=== PATIENT | female | born 1985 | race Caucasian/White ===

== ENCOUNTER → 2016-12-18 | Outpatient (CLI) | payer OTHER ==
[~2016-12-18] MED LIST: PROM25TA14 PO
--- OUTSIDE RECORDS SUMMARY | 2016-12-18 13:00 | XMS REPORT | Continuity of Care Document ---
Author Author [facility] Organization [facility] Address Unknown Phone Unavailable Care Team Providers Care Educational Advisor Name Role Phone NO, LOCAL PHYSICIAN PCP Unavailable Insurance Providers Payer Name Policy Number Subscriber Name Relationship Self Pay Jennifer Mancia 18 Self / Same As Patient Advance Directives Directive Response Recorded Date/Time Advance Directives No 10/01/16 2:46pm Resuscitation Status Full Code 10/01/16 2:46pm Chief Complaint and Reason for Visit Chief Complaint -Female Reason for Visit Vomiting affecting Dehydration Problems Active Problems Medical Problem Onset Date Status Dehydration Unknown Acute Vomiting affecting Unknown Acute Medications Current Home Medications Medication Dose Units Route Directions Days/Qty Instructions Start Date Promethazine Hcl (Phenergan Tablet) 25 Mg 25 Mg Oral Every 8HRS as needed for Nausea/Vomiting 14 10/01/16 Social History Social History Problem Response Recorded Date/Time Alcohol Use Denies Use 10/01/2016 2:54pm Recreational Drug Use No 10/01/2016 2:54pm Recent Foreign Travel No 10/01/2016 2:16pm Recent Infectious Disease Exposure No 10/01/2016 2:16pm Hospitalization with Isolation Denies 10/01/2016 2:16pm Smoking Status Current Everyday Smoker 10/01/2016 2:54pm Recent Hopitalizations No 10/01/2016 2:46pm Hospitalization with Isolation Denies 10/01/2016 2:16pm Query Response Start Date Stop Date Smoking Status Current Everyday Smoker Hospital Discharge Instructions No hospital discharge instructions. Plan of Care Discharge Date 10/01/16 5:32pm Disposition 01 HOME, SELF-CARE Condition at Discharge Improved Instructions/Education Provided Dehydration, Adult (DC) Nausea and Vomiting of (DC) Forms Provided Local Medical Staff Listing Prescriptions See Medication Section Referrals NO,LOCAL PHYSICIAN - Primary Care Physician Additional Instructions/Education All discharge instructions reviewed with patient and/or family. Voiced understanding. Drink plenty of fluids by drinking small sips frequently. Clear liquid diet for 24 hours and then advance as tolerated. You should try small snacks or meals more frequently and avoid any large snack or male. It is very important that he establish care with an OB doctor. Use local medical staff listing for guidance. Return for worse pain, fever, vomiting, weakness, breathing problems or other concerns as needed. Functional Status No functional status results. Allergies, Adverse Reactions, Alerts No known allergies. Immunizations No immunization records. Vital Signs Acute Vital Signs Vital Response Date/Time Temperature (Fahrenheit) 98 degrees F (97.6 - 99.5) 10/01/2016 2:16pm Temperature (Calculated Celsius) 36.6696 degrees C (36.4 - 37.5) 10/01/2016 2 :16pm Temperature Source Temporal 10/01/2016 2:16pm Pulse Rate (adult) 90 bpm (60 - 90) 10/01/2016 2:16pm Respiratory Rate 18 bpm (12 - 24) 10/01/2016 2:16pm Blood Pressure 134/73 mm Hg 10/01/2016 2:16pm Blood Pressure Mean 93 mm Hg 10/01/2016 2:16pm Pain Numeric Pain Scale 6 10/01/2016 2:16pm Height (Feet) 5 feet 10/01/2016 2:16pm Height (Inches) 5 inches 10/01/2016 2:16pm Height (Calculated Centimeters) 165.489360 cm 10/01/2016 2:16pm Weight (Pounds) 130 pounds 10/01/2016 2:16pm Weight (Calculated Kilograms) 58.632834 kilograms 10/01/2016 2:16pm Capillary Refill Capillary Refill Less Than 3 Seconds 10/01/2016 2:16pm Height 5 ft 5 in Weight 130 lb Body Mass Index 21.6 kg/m^2 Results Laboratory Results Test Name Result Units Flags Reference Collection Date/Time Result Date/ Time Comments White Blood Count 11.8 10^3/uL H 4.3-11.0 10/01/2016 2:24pm 10/01/2016 2: 47pm Red Blood Count 4.14 10^6/uL L 4.35-5.85 10/01/2016 2:24pm 10/01/2016 2: 47pm Hemoglobin 12.2 G/DL 11.5-16.0 10/01/2016 2:24pm 10/01/2016 2:47pm Hematocrit 35 % 35-52 10/01/2016 2:24pm 10/01/2016 2:47pm Mean Corpuscular Volume 85 FL 80-99 10/01/2016 2:24pm 10/01/2016 2: 47pm Mean Corpuscular Hemoglobin 30 PG 25-34 10/01/2016 2:24pm 10/01/2016 2: 47pm Mean Corpuscular Hemoglobin Concent 35 G/DL 32-36 10/01/2016 2:24pm 2:47pm Red Cell Distribution Width 13.7 % 10.0-14.5 10/01/2016 2:24pm 2015 2:47pm Platelet Count 205 10^3/uL 130-400 10/01/2016 2:24pm 10/01/2016 2:47pm Mean Platelet Volume 10.6 FL H 7.4-10.4 10/01/2016 2:24pm 10/01/2016 2: 47pm Neutrophils (%) (Auto) 78 % H 42-75 10/01/2016 2:24pm 10/01/2016 2:47pm Lymphocytes (%) (Auto) 14 % 12-44 10/01/2016 2:24pm 10/01/2016 2:47pm Monocytes (%) (Auto) 7 % 0-12 10/01/2016 2:24pm 10/01/2016 2:47pm Eosinophils (%) (Auto) 1 % 0-10 10/01/2016 2:24pm 10/01/2016 2:47pm Basophils (%) (Auto) 0 % 0-10 10/01/2016 2:24pm 10/01/2016 2:47pm Neutrophils # (Auto) 9.2 X 10^3 H 1.8-7.8 10/01/2016 2:24pm 10/01/2016 2: 47pm Lymphocytes # (Auto) 1.7 X 10^3 1.0-4.0 10/01/2016 2:24pm 10/01/2016 2: 47pm Monocytes # (Auto) 0.8 X 10^3 0.0-1.0 10/01/2016 2:24pm 10/01/2016 2: 47pm Eosinophils # (Auto) 0.1 10^3/uL 0.0-0.3 10/01/2016 2:24pm 10/01/2016 2 :47pm Basophils # (Auto) 0.0 10^3/uL 0.0-0.1 10/01/2016 2:24pm 10/01/2016 2: 47pm Urine Color YELLOW 10/01/2016 2:40pm 10/01/2016 2:56pm Urine Clarity SLIGHTLY CLOUDY 10/01/2016 2:40pm 10/01/2016 2:56pm Urine pH 6 5-9 10/01/2016 2:40pm 10/01/2016 2:56pm Urine Specific [place] 1.025 * 1.016-1.022 10/01/2016 2:40pm 2015 2:56pm Urine Protein NEGATIVE NEGATIVE 10/01/2016 2:40pm 10/01/2016 2:56pm Urine Glucose (UA) NEGATIVE NEGATIVE 10/01/2016 2:40pm 10/01/2016 2: 56pm Urine RBC (Auto) 1+ * NEGATIVE 10/01/2016 2:40pm 10/01/2016 2:56pm Urine Ketones 3+ * NEGATIVE 10/01/2016 2:40pm 10/01/2016 2:56pm Urine Nitrite NEGATIVE NEGATIVE 10/01/2016 2:40pm 10/01/2016 2:56pm Urine Bilirubin NEGATIVE NEGATIVE 10/01/2016 2:40pm 10/01/2016 2: 56pm Urine Urobilinogen NORMAL MG/DL NORMAL 10/01/2016 2:40pm 10/01/2016 2: 56pm Urine Leukocyte Esterase 2+ * NEGATIVE 10/01/2016 2:40pm 10/01/2016 2: 56pm Urine RBC 5-10 /HPF * 10/01/2016 2:40pm 10/01/2016 2:56pm Urine WBC 2-5 /HPF 10/01/2016 2:40pm 10/01/2016 2:56pm Urine Bacteria FEW /HPF * 10/01/2016 2:40pm 10/01/2016 2:56pm Urine Squamous Epithelial Cells TNTC /HPF * 10/01/2016 2:40pm 2015 2:56pm Urine Crystals NONE /LPF 10/01/2016 2:40pm 10/01/2016 2:56pm Urine Casts NONE /LPF 10/01/2016 2:40pm 10/01/2016 2:56pm Urine Mucus MODERATE /LPF * 10/01/2016 2:40pm 10/01/2016 2:56pm Urine Culture Indicated NO 10/01/2016 2:40pm 10/01/2016 2:56pm SPECIMEN IS NOT CONSIDERED A "CLEAN CATCH" DUE TO NUMEROUS SQUAMOUS EPITHELIAL CELLS PRESENT. PLEASE SUBMIT A NEW SPECIMEN AND REORDER IF CULTURE IS REQUESTED. Sodium Level 136 MMOL/L 135-145 10/01/2016 2:24pm 10/01/2016 3:02pm Potassium Level 3.5 MMOL/L L 3.6-5.0 10/01/2016 2:24pm 10/01/2016 3:02pm Chloride Level 105 MMOL/L 98-107 10/01/2016 2:24pm 10/01/2016 3:02pm Carbon Dioxide Level 22 MMOL/L 21-32 10/01/2016 2:24pm 10/01/2016 3: 02pm Anion Gap 9 MMOL/L 5-14 10/01/2016 2:24pm 10/01/2016 3:02pm Blood Urea Nitrogen 5 MG/DL L 7-18 10/01/2016 2:24pm 10/01/2016 3:02pm Creatinine 0.55 MG/DL L 0.60-1.30 10/01/2016 2:24pm 10/01/2016 3:02pm BUN/Creatinine Ratio 9 10/01/2016 2:24pm 10/01/2016 3:02pm Estimat Glomerular Filtration Rate > 60 10/01/2016 2:24pm 2015 3:02pm GFR INTERPRETIVE DATA UNITS FOR ESTIMATED GFR (eGFR): mL/min/1.73 M2 REFERENCE RANGE FOR ESTIMATED GFR (eGFR) eGFR NORMAL eGFR >60 MODERATELY DECREASED eGFR 30-59 SEVERLY DECREASED eGFR 15-29 KIDNEY FAILURE <15 (OR DIALYSIS) Glucose Level 81 MG/DL 70-105 10/01/2016 2:24pm 10/01/2016 3:02pm Calcium Level 9.1 MG/DL 8.5-10.1 10/01/2016 2:24pm 10/01/2016 3:02pm Total Bilirubin 0.2 MG/DL 0.1-1.0 10/01/2016 2:24pm 10/01/2016 3:02pm Alkaline Phosphatase 51 U/L 40-136 10/01/2016 2:24pm 10/01/2016 3:02pm Aspartate Amino Transf (AST/SGOT) 14 U/L 5-34 10/01/2016 2:24pm 2015 3:02pm Alanine Aminotransferase (ALT/SGPT) 15 U/L 0-55 10/01/2016 2:24pm 10/01 3:02pm Total Protein 6.7 G/DL 6.4-8.2 10/01/2016 2:24pm 10/01/2016 3:02pm Albumin 4.2 G/DL 3.2-4.5 10/01/2016 2:24pm 10/01/2016 3:02pm Procedures No known history of procedures. Encounters Encounter Location Arrival/Admit Date Discharge/Depart Date Attending Provider Departed Emergency Room [facility] 10/01/16 2:04pm 10/01 5:32pTRISH Rodriguez MD Recent Diagnosis
--- NOTE | 2016-12-18 16:35 | Diagnostic Imaging Report ---
EXAMINATION: OB ultrasound. INDICATION: survey. FINDINGS: The heart rate is 150 BPM. The cervix is long and closed. The placenta is fundal. There is no placenta previa. The spine, posterior fossa, lateral ventricles, stomach, four-chamber view, bladder, two umbilical arteries, and cord insertion are seen with no abnormality identified. No hydronephrosis or cystic renal mass is demonstrated. The growth parameters are all around 19 weeks and 6 days, concordant with the gestational age of 19 weeks and 3 days based on the prior ultrasound. IMPRESSION: Appropriate interval growth. Completed survey. Dictated by: Dictated on workstation # [id number]
== END ==
LOC: RAD 12:56
PROVIDERS: ATTEND Family Medicine
DX: Z34.92 Encounter for supervision of normal pregnancy, unspecified, second trimester (principal)
CPT/HCPCS: 76805

== ENCOUNTER → 2017-02-27 | Outpatient (CLI) | payer OTHER | LOC: LAB 09:19 | PROVIDERS: ATTEND Family Medicine | DX: O99.810 Abnormal glucose complicating pregnancy (principal) | CPT/HCPCS: 36415; 82951; 82952; 82962 ==

== ENCOUNTER 2017-03-19 14:10 | Outpatient (CLI) | payer OTHER ==
[~2017-03-19] VITALS: Ht 165.1 cm; Wt 78.2 kg
[2017-03-19 14:35] VITALS: BP 126/64
--- NOTE | 2017-03-19 16:32 | Diagnostic Imaging Report ---
INDICATION: Pain, leaking fluids, contractions. TECHNIQUE: Multiple, limited real-time grayscale images were obtained of the gravid uterus. CORRELATION STUDY: 12/18/2016. FINDINGS: Limited obstetrical sonogram imaging demonstrates cervical length at 3.3 cm. Cervix appears to be generally closed. Fetus is currently in cephalic presentation. There is normal amount of amniotic fluid with an index at 12.1 cm. Placenta is posterior and without definitive evidence for previa. cardiac activity at 144 beats per minute. IMPRESSION: 1. Limited obstetrical sonogram imaging demonstrates intrauterine , currently in cephalic presentation. 2. Currently normal amount of amniotic fluid with an index at 12 cm. 3. Cervix has an unremarkable appearance. Dictated by: Dictated on workstation # [id number]
[2017-03-19 17:10] VITALS: BP 123/68
[2017-03-19] MEDS ORDERED: PREN1TAB86 PO (18:30)
--- NOTE | 2017-03-19 20:23 | Clinic Account Progress/Dx ---
Clinic Account Progress/Dx DIAGNOSIS: Diagnosis 32 weeks gestation contractions No significant cervical dilation and no cervical change manager 4 hours Cervical length 3.3 cm GA normal Amnioswab negative BHUPENDRA COLIN MD March 19, 2017 20:23
== END 2017-03-19 18:55 | disposition home or self-care (01) ==
LOC: LDRP 14:10 → WSo 14:10
PROVIDERS: ATTEND Family Medicine
DX: O60.03 Preterm labor without delivery, third trimester (principal); Z3A.32 32 weeks gestation of pregnancy
CPT/HCPCS: 76815; 99214

== ENCOUNTER 2017-05-02 09:49 | Inpatient (IN) | payer OTHER ==
[2017-05-02] VITALS (35 sets, daily range): BP systolic 103–172; BP diastolic 50–98
[~2017-05-02] VITALS: Ht 165.1 cm; Wt 83.7 kg
[~2017-05-02 09:49] MED LIST changes: +PREN1TAB86 PO
[2017-05-02] MEDS ORDERED: BETAMETHASONE ACE/NA PHOS 6 MG/ML (CELESTONE SOLUSPAN) ONE (11:52)
[2017-05-02] MEDS ORDERED: NS (IVPB) 0 ML ONE (11:53)
[2017-05-02] MEDS ORDERED: AMPICILLIN 2000 MG INJECTION (IM/IV) ONE (11:53)
[2017-05-02] MEDS ORDERED: D5 LR IV SOLUTION 0 ML IV ONE (11:53)
[2017-05-02] MEDS ORDERED: D5 LR IV SOLUTION 1,000 ML IV SCH (12:17)
[2017-05-02 12:25] LABS: BASOPHILS % (AUTO) 0 % (0-10); EOSINOPHILS % (AUTO) 0 % (0-10); LYMPHOCYTES # (AUTO) 1.7 X 10^3 (1.0-4.0); LYMPHOCYTES % (AUTO) 7 % (12-44); MEAN CORPUSCULAR HEMOGLOBIN 26 PG (25-34); MEAN CORPUSCULAR HGB CONC 33 G/DL (32-36); MEAN CORPUSCULAR VOLUME 80 FL (80-99); MEAN PLATELET VOLUME 11.4 FL (7.4-10.4); MONOCYTES # (AUTO) 1.4 X 10^3 (0.0-1.0); MONOCYTES % (AUTO) 5 % (0-12); NEUTROPHILS # (AUTO) 23.4 X 10^3 (1.8-7.8); NEUTROPHILS % (AUTO) 88 % (42-75); PLATELET COUNT 202 10^3/uL (130-400); RED BLOOD COUNT 4.34 10^6/uL (4.35-5.85); RED CELL DISTRIBUTION WIDTH 14.3 % (10.0-14.5); WHITE BLOOD COUNT 26.6 10^3/uL (4.3-11.0)
[2017-05-02] MEDS ORDERED: MINERAL OIL CONCENTRATE 99.9% 15 ML UDC TOP PRN (12:30)
[2017-05-02 12:52] LABS: BAND NEUTROPHILS 1 %; BASOPHILS % (MANUAL) 0 %; EOSINOPHILS % (MANUAL) 0 %; LYMPHOCYTES % (MANUAL) 2 %; NEUTROPHILS % (MANUAL) 95 %
[2017-05-02] MEDS ORDERED: LACTATED RINGERS 1,000 ML IV ONE ×3 (12:56→16:21)
--- NOTE | 2017-05-02 13:22 | History & Physical-OB ---
OB - Chief Complaint & HPI Date/Time Date of Admission: Date of Admission: May 02, 2017 at 11:45 Time Seen by Provider: 13:16 Chief Complaint/History OB-Reason for Admission/Chief: Onset of Labor (Contractions started at 1 AM) Hx : 8 Hx Para: 3 Expected Date of Delivery: May 09, 2017 Gestational Age in Weeks: 39 Gestational Age in Days: 0 Allergies and Home Medications Allergies Coded Allergies: No Known Drug Allergies (Unverified , 10/01/16) Home Medications Vit W-Ca,Fe,FA(<1 mg) 1 Each Tablet, 1 EACH PO DAILY, (Reported) OB - History Hx of Present Care: Yes Ultrasounds: Normal mid trimester US Obstetrical Complications: None Medical Complications: Other (h/o HSV infection, no active lesions during ) Information Induced Hypertension: No Maternal Gestational Diabetes: No Hemorrhage: No Obstetrical History Hx : 8 Hx Para: 3 Hx # Term Pregnancies: 3 Number of Living Children: 3 Hx Total # of Abortions (Spona: 4 Hx Stillbirth: Yes (6 months) Hx Complication: No Hx Induced Hypertens: No Hx Maternal Gestational Diabet: No Hx Hemorrhage: No Delivery History Hx Vacuum Extraction Assisted: Yes (First ) Patient Past Medical History h/o HSV Abnormal Pap s/p Colpo 3x Social History/Family History HIV/AIDS: No Recent Infectious Disease Expo: No Sexually Transmitted Disease: Yes (HSV) Alcohol Use: Denies Use Recreational Drug Use: No Smoking Cessation: Former smoker Immunizations Tetanus Booster (TDap): Less than 5yrs (03/03/17) Rubella: immune RPR/VDRL: Negative GBS Status: Negative HBsAG: Negative OB - Admission Exam Physical Exam Date Seen by Provider: May 02, 2017 Time Seen by Provider: 13:16 HEENT: NCAT Heart: Rhythm Normal Lungs: Clear Abdomen: Non tender Extremities: Normal Reflexes: Normal Cervical Dilatation: 5cm Effacement: 100% Station: Ballotable Membranes: Intact Heart Rate: 140's Accelerations: Accelerations Present Decelerations: Variable Decelerations Short Term Variability: Present Contractions on Admission: < 5 Minutes Apart Date/Time Contractions Began;: 0100 Intensity: Firm Labs Laboratory Tests Test 05/02/17 12:00 Range/Units White Blood Count 26.6 H 4.3-11.0 10^3/uL Red Blood Count 4.34 L 4.35-5.85 10^6/uL Hemoglobin 11.3 L 11.5-16.0 G/DL Hematocrit 35 35-52 % Mean Corpuscular Volume 80 80-99 FL Mean Corpuscular Hemoglobin 26 25-34 PG Mean Corpuscular Hemoglobin Concent 33 32-36 G/DL Red Cell Distribution Width 14.3 10.0-14.5 % Platelet Count 202 130-400 10^3/uL Mean Platelet Volume 11.4 H 7.4-10.4 FL Neutrophils (%) (Auto) 88 H 42-75 % Lymphocytes (%) (Auto) 7 L 12-44 % Monocytes (%) (Auto) 5 0-12 % Eosinophils (%) (Auto) 0 0-10 % Basophils (%) (Auto) 0 0-10 % Neutrophils # (Auto) 23.4 H 1.8-7.8 X 10^3 Lymphocytes # (Auto) 1.7 1.0-4.0 X 10^3 Monocytes # (Auto) 1.4 H 0.0-1.0 X 10^3 Eosinophils # (Auto) 0.0 0.0-0.3 10^3/uL Basophils # (Auto) 0.0 0.0-0.1 10^3/uL Neutrophils % (Manual) 95 % Lymphocytes % (Manual) 2 % Monocytes % (Manual) 2 % Eosinophils % (Manual) 0 % Basophils % (Manual) 0 % Band Neutrophils 1 % Blood Morphology Comment NORMAL OB - Assessment/Plan/Diagnosis Assessment Assessment: active labor Plan Plan: Expectant Management Other Plan 31 yo @ 39.0 wga here in Active labor Plan - Continue expectant management - HSV on PPX Acyclovir - GBS neg Copy Copies To 1: GLORY DAO MD, HOLLY R MD May 02, 2017 13:22
[2017-05-02] MEDS ORDERED: CATHETER FLUSH 10 ML SYR IV SCH ×2 (14:00→22:00)
[2017-05-02] MEDS ORDERED: OXYTOCIN/NORMAL SALINE 500 ML IV SCH ×2 (14:30→19:32)
[2017-05-02] MEDS ORDERED: SUFENTA 0.6MCG/ML BUPIVA 0.125 100 ML ONE (15:40)
[2017-05-02] MEDS ORDERED: BUPIVACAINE 0.25% 30 ML (SENSORCAINE) VIAL ONE (15:42)
[2017-05-02] MEDS ORDERED: fentaNYL INJECTION 100 MCG/2 ML AMP ONE (15:43)
[2017-05-02] MEDS ORDERED: fentaNYL INJECTION 100 MCG/2 ML AMP INJ ONE (16:30)
[2017-05-02] MEDS ORDERED: ONDANSETRON 4 MG/2 ML (SDV) Z0FRAN IV PRN (16:30)
[2017-05-02] MEDS ORDERED: NALOXONE 0.4 MG/ML 1 ML (NARCAN) VIAL IV PRN (16:30)
[2017-05-02] MEDS ORDERED: EPIDURAL (SUFENTA 0.6MCG/ML BUPIVA 0.125%) 100 ML BAG EPI PRN (16:30)
[2017-05-02] MEDS ORDERED: WITCH HAZEL(TUCKS) 40 EA JAR TOP PRN (19:45)
[2017-05-02] MEDS ORDERED: TETANUS,DIPTH,PERTUSS P/F (BOOSTRIX) 0.5 ML VIAL IM ONE (19:45)
[2017-05-02] MEDS ORDERED: MEASLES,MUMPS,RUBELLA 1 EA INJ SQ ONE (19:45)
[2017-05-02] MEDS ORDERED: BENZOCAINE/MENTHOL (DERMOPLAST) 56 ML CAN TP PRN (19:45)
[2017-05-02] MEDS: IBUPROFEN 600 MG (MOTRIN) TAB PO SCH (19:54)
[2017-05-03] MEDS: IBUPROFEN 600 MG (MOTRIN) TAB PO SCH ×4 (01:59→20:17)
[2017-05-03 05:30] VITALS: BP 110/66
[2017-05-03 06:45] LABS: BASOPHILS % (AUTO) 0 % (0-10); EOSINOPHILS % (AUTO) 0 % (0-10); LYMPHOCYTES # (AUTO) 2.6 X 10^3 (1.0-4.0); LYMPHOCYTES % (AUTO) 10 % (12-44); MEAN CORPUSCULAR HEMOGLOBIN 26 PG (25-34); MEAN CORPUSCULAR HGB CONC 32 G/DL (32-36); MEAN CORPUSCULAR VOLUME 81 FL (80-99); MEAN PLATELET VOLUME 10.7 FL (7.4-10.4); MONOCYTES # (AUTO) 1.5 X 10^3 (0.0-1.0); MONOCYTES % (AUTO) 6 % (0-12); NEUTROPHILS # (AUTO) 22.2 X 10^3 (1.8-7.8); NEUTROPHILS % (AUTO) 85 % (42-75); PLATELET COUNT 191 10^3/uL (130-400); RED BLOOD COUNT 3.67 10^6/uL (4.35-5.85); RED CELL DISTRIBUTION WIDTH 14.5 % (10.0-14.5); WHITE BLOOD COUNT 26.3 10^3/uL (4.3-11.0)
[2017-05-03] MEDS: PRENATAL VITAMIN 1 EA TAB PO SCH (08:26)
[2017-05-03 08:27] VITALS: BP 113/61
--- NOTE | 2017-05-03 10:51 | OB Labor & Delivery Record ---
L&D History Date of Service Date of Service: May 02, 2017 History Expected Date of Delivery: May 09, 2017 Gestational Age in Weeks: 39 Hx : 8 Hx Para: 3 Complications Events: Routine care Operative Indications (Cesarea: N/A-Vaginal Delivery Other Complications Variable decelerations L&D Stage1 Monitors and Tracing Monitor Mode: External Heart Rate: 150 Monitor Decelerations: None Station: -2 Vital Signs VS - Last 72 Hours, by Label 05/02/17 05/02/17 05/02/17 05/02/17 10:03 11:25 12:00 12:30 Temp 97.6 97.2 Pulse 118 97 93 120 Resp 20 20 20 20 B/P (MAP) 128/68 124/76 123/69 119/82 O2 Delivery Room Air Room Air Room Air Room Air 05/02/17 05/02/17 05/02/17 05/02/17 13:45 14:05 15:00 15:30 Temp 97.8 Pulse 129 111 113 99 Resp 20 20 20 20 B/P (MAP) 118/70 124/63 141/74 129/77 O2 Delivery Room Air Room Air Room Air Room Air 05/02/17 05/02/17 05/02/17 05/02/17 15:55 16:00 16:05 16:10 Pulse 111 110 116 117 Resp 20 20 20 20 B/P (MAP) 119/58 139/65 126/75 133/61 Pulse Ox 100 100 100 97 O2 Delivery Room Air Room Air Room Air Room Air 05/02/17 05/02/17 05/02/17 05/02/17 16:15 16:20 16:25 16:30 Pulse 109 110 102 107 Resp 20 20 20 18 B/P (MAP) 124/62 125/64 114/58 121/63 Pulse Ox 97 98 96 100 O2 Delivery Room Air Room Air Room Air Room Air 05/02/17 05/02/17 05/02/17 05/02/17 16:35 16:40 16:45 17:00 Pulse 93 107 101 99 Resp 18 18 18 18 B/P (MAP) 121/63 128/71 121/62 116/63 Pulse Ox 98 97 96 98 O2 Delivery Room Air Room Air Room Air Room Air 05/02/17 05/02/17 05/02/17 05/02/17 17:15 17:35 17:50 18:05 Temp 99.0 Pulse 101 94 115 85 Resp 16 16 16 16 B/P (MAP) 128/75 103/50 140/98 107/54 Pulse Ox 97 100 100 100 O2 Delivery Room Air Room Air Room Air Room Air 05/02/17 05/02/17 05/02/17 05/02/17 18:35 18:50 19:05 19:22 Temp 99.1 Pulse 115 109 123 134 Resp 16 16 16 18 B/P (MAP) 136/66 132/57 147/91 151/75 Pulse Ox 100 100 100 O2 Delivery Room Air Room Air Room Air 05/02/17 05/02/17 05/02/17 05/02/17 19:33 19:48 19:57 20:03 Pulse 122 118 115 114 Resp 18 18 18 18 B/P (MAP) 172/65 145/69 133/60 129/61 05/02/17 05/02/17 05/02/17 05/03/17 20:18 20:33 23:30 05:30 Temp 97.0 98.0 97.8 Pulse 117 113 107 81 Resp 18 18 18 18 B/P (MAP) 128/60 142/65 114/67 110/66 Rupture of Membranes Spontaneous Ruture of Membrane: No Amniotic Membrane Rupture Time: 1640 Amniotic Membrane Fluid Desc.: Clear Induction/Anesthesia Epidural Cath Placement - Time: 1559 L&D Stage2 Monitors and Tracing Monitor Mode: External Heart Rate: 150 Monitor Decelerations: None Cord Descript/Complications Cord Vessel Description: 3 Vessels Delivery Type Infant Delivery Method: Spontaneous Vaginal Anterior Shoulder: Right Episiotomy/Perineal Laceration Laceraction(s)/Extensions: No Condition of Infant Delivery Delivery Date & Time: 05/02/2017 1905 1 minute Comment: 8 5 minute Comment: 9 Notes Infant born with true knot of umbilical cord Condition of Infant Condition of : Living Exam: No Observed Abnormalities Resuscitation Resuscitation: N/A - Spontaneous Resp L&D Stage3 Stage Three Stage III Time: 19:09 Pictocin Pitocin Administration mu/min: 4 Pitocin ml/hr: 4 Placenta Delivery Placenta Delivery: Spontaneous Delivery Summary Summary Vaginal blood loss >500ml: No 200 Attending at delivery: Glory Grider MD Condition of Delivery Examined: Cervix Examined Post Hemorrhage: No Condition of Mother Stable in delivery room Condition of (s) Stable in delivery room with mother GLORY GRIDER MD May 03, 2017 10:51
--- NOTE | 2017-05-03 10:55 | Progress Note (SOAP) ---
Subjective Subjective/Events-last exam No concerns today. States that overnight she was concerned that he was not getting enough to eat and starting giving formula. Pain well controlled on PO medications. Tolerating ambulation and PO diet Review of Systems Time Seen by Provider: 10:52 HEENT: No Head Aches Pulmonary: No Dyspnea, Cough Cardiovascular: No: Chest Pain Gastrointestinal: No: Abdominal Pain, Nausea, Vomiting Genitourinary: No Dysuria Objective Exam Last Set of Vital Signs Vital Signs Date Time Temp Pulse Resp B/P (MAP) Pulse Ox O2 Delivery O2 Flow Rate FiO2 05/03/17 05:30 97.8 81 18 110/66 05/02/17 19:05 100 Room Air Capillary Refill : I&O Bad tableGeneral: Alert, Oriented X3, No Acute Distress Lungs: Clear to Auscultation, Normal Air Movement Heart: Regular Rate, No Murmurs Abdomen: Normal Bowel Sounds, Soft, No Tenderness (fundus at umbilicus) Extremities: No Edema, No Tenderness/Swelling Psych/Mental Status: Mental Status NL, Mood NL Results/Procedures Lab Laboratory Tests 05/02/17 12:00: White Blood Count 26.6H, Red Blood Count 4.34L, Hemoglobin 11.3L, Hematocrit 35 , Mean Corpuscular Volume 80, Mean Corpuscular Hemoglobin 26, Mean Corpuscular Hemoglobin Concent 33, Red Cell Distribution Width 14.3, Platelet Count 202, Mean Platelet Volume 11.4H, Neutrophils (%) (Auto) 88H, Lymphocytes (%) (Auto) 7L, Monocytes (%) (Auto) 5, Eosinophils (%) (Auto) 0, Basophils (%) (Auto) 0, Neutrophils # (Auto) 23.4H, Lymphocytes # (Auto) 1.7, Monocytes # (Auto) 1.4H, Eosinophils # (Auto) 0.0, Basophils # (Auto) 0.0, Neutrophils % (Manual) 95, Lymphocytes % (Manual) 2, Monocytes % (Manual) 2, Eosinophils % (Manual) 0, Basophils % (Manual) 0, Band Neutrophils 1, Blood Morphology Comment NORMAL 05/03/17 06:30: White Blood Count 26.3H, Red Blood Count 3.67L, Hemoglobin 9.5L, Hematocrit 30L , Mean Corpuscular Volume 81, Mean Corpuscular Hemoglobin 26, Mean Corpuscular Hemoglobin Concent 32, Red Cell Distribution Width 14.5, Platelet Count 191, Mean Platelet Volume 10.7H, Neutrophils (%) (Auto) 85H, Lymphocytes (%) (Auto) 10L, Monocytes (%) (Auto) 6, Eosinophils (%) (Auto) 0, Basophils (%) (Auto) 0, Neutrophils # (Auto) 22.2H, Lymphocytes # (Auto) 2.6, Monocytes # (Auto) 1.5H, Eosinophils # (Auto) 0.0, Basophils # (Auto) 0.0 Assessment/Plan Assessment/Plan Plan 31 yo G8 now P4 delivery term male infant via @ 39.0 wga, PPD #1 Plan - Routine Post care - Bleeding stable, Hgb 9.5, continue PNV with iron - Encouraged ambulation - Bottle feeding infant - Pain well controlled on PO meds - Plan to d/c tomorrow with [address] follow up with Dr Grider Diagnosis/Problems: Clinical Quality Measures DVT/VTE Risk/Contraindication: Risk Factor Score Per Nursin RFS Level Per Nursing on Admit: 2=Moderate GLORY GRIDER MD May 03, 2017 10:55
[2017-05-03 12:45] VITALS: BP 125/68
--- NOTE | 2017-05-03 13:25 | Anesthesia-Regional Post-Op ---
Regional Patient Condition Mental Status: Alert, Oriented x3 Circulation: Same as Pre-Op Headache: Absent Sensation: Full Recovery Motor Block: Absent Post Op Complications Complications None Follow Up Care/Instructions Patient Instructions None needed. Anesthesia/Patient Condition Patient is doing well, no complaints, stable vital signs, no apparent adverse anesthesia problems. No complications reported per nursing. ZENIADA MANZANO CRNA May 03, 2017 13:25
[2017-05-03 17:35] VITALS: BP 110/67
[2017-05-03 20:17] VITALS: BP 117/69
[2017-05-04 02:50] VITALS: BP 102/64
[2017-05-04] MEDS: IBUPROFEN 600 MG (MOTRIN) TAB PO SCH ×2 (02:52→08:31)
[2017-05-04] MEDS: PRENATAL VITAMIN 1 EA TAB PO SCH (08:31)
[2017-05-04 09:45] VITALS: BP 110/68
[2017-05-04] MEDS ORDERED: IBUP-1773 PO (10:36)
--- NOTE | 2017-05-04 10:37 | Discharge Instructions ---
Discharge Inst-Women's Serv Depart Medications New, Converted or Re-Newed RX: Transmitted to Pharmacy Final Diagnosis Term Delivery of Male New Medications: Ibuprofen (Ibuprofen) 600 Mg Tablet 600 MG PO Q6H, #90 TAB Continued Medications: Vit W-Ca,Fe,FA(<1 mg) ( Vitamins) 1 Each Tablet 1 EACH PO DAILY, TAB Follow Up/Instructions Goal/Follow Up: [address] Grider for post visit Activity Activity: Activity as Tolerated Driving Instructions: You May Drive NO SMOKING: NO SMOKING Nothing Inside Vagina: No Douching, No [place], No Tampons Diet Discharge Diet: No Restrictions Symptoms to Report to : Bleeding Excessive, Fever Over 101 Degrees F, Lightheadedness, Vaginal Discharge Foul, Shortness of Breath For Any Problems or Questions: Contact Your Physician Skin/Wound Care Bathing Instructions: Shower Copies To 1: GLORY GRIDER MD, HOLLY R MD May 04, 2017 10:37
--- NOTE | 2017-05-04 10:41 | Discharge Summary ---
Diagnosis/Chief Complaint Date of Admission May 02, 2017 at 11:45 Date of Discharge May 04 2017 Admission Diagnosis Admission Diagnosis Active Labor Contractions at term Discharge Diagnosis Term delivery of male infant Anemia associated with Chief Complaint/HPI Chief Complaint/HPI 31 yo @ 39 wga presented to L&D with Contractions, found to be in active labor Discharge Summary-Simple/Stand Procedures Epidural placement AROM Discharge Physical Examination Allergies: Coded Allergies: No Known Drug Allergies (Unverified , 10/01/16) Vitals & I&Os Vital Sign - Last 12Hours Date Time Temp Pulse Resp B/P (MAP) Pulse Ox O2 Delivery O2 Flow Rate FiO2 05/04/17 09:45 97.4 71 20 110/68 98 Room Air General Appearance: Alert, Oriented X3, Cooperative, No Acute Distress HEENT: Atraumatic, PERRLA Respiratory: Clear to Auscultation, Normal Air Movement Cardiovascular: Regular Rate, No Murmurs Abdominal: Normal Bowel Sounds, Soft, No Tenderness (fundus firm below umbilicus) Extremities: No Edema, No Tenderness/Swelling Skin: No Rashes Neuro: Normal Speech, Strength at 5/5 X4 Ext, Sensation Intact, Cranial Nerves 3-12 NL Psych/Mental Status: Mental Status NL, Mood NL Hospital Course See final discharge diagnosis. Discussion & Recommendations 31 yo G8 now P4 delivered male infant via . Infant born with true knot. Rub Imm, O+, Ab neg. Discharge Condition at discharge Stable Instructions to patient/family Please see electonic discharge instructions given to patient. Discharge Medications Reviewed and agree with Discharge Medication list on patient's Discharge Instruction sheet Clinical Quality Measures DVT/VTE Risk/Contraindication: Risk Factor Score Per Nursin RFS Level Per Nursing on Admit: 2=Moderate Copy Copies To 1: GLORY DAO MD, HOLLY R MD May 04, 2017 10:41
== END 2017-05-04 11:20 | disposition home or self-care (01) | DRG 774 ==
LOC: LDRP 09:49 → WSo 09:49 → LDRP 11:45
PROVIDERS: ADMIT Family Medicine; ATTEND Family Medicine
PROC: 10E0XZZ Delivery of Products of Conception, External Approach (ICD-10-PCS; principal; 2017-05-02)
DX: O69.2XX0 Labor and delivery complicated by other cord entanglement, with compression, not applicable or unspecified (principal); O98.52 Other viral diseases complicating childbirth; Z37.0 Single live birth; Z3A.39 39 weeks gestation of pregnancy
CPT/HCPCS: 36415; 85007; 85025; 85027; 86850; 86900; 86901; 99212

== ENCOUNTER 2018-03-28 01:37 | Emergency (ER) | payer SELFPAY ==
[~2018-03-28] VITALS: Ht 165.1 cm; Wt 54.4 kg
[~2018-03-28 01:37] MED LIST changes: +IBUP-1773 PO
--- OUTSIDE RECORDS SUMMARY | 2018-03-28 01:44 | XMS REPORT ---
Author Author GLORY DAO [facility] Address [address] [place] [address] Care Team Providers Care Saute Chef Name Role Phone GLORY DAO Unavailable PROBLEMS Type Condition ICD9-CM Code [id number] Code Onset Dates Condition Status SNOMED Code Problem IUD (intrauterine device) in place Z97.5 Active 947126046 Problem HSV (herpes simplex virus) infection B00.9 Active 09877212 ALLERGIES No Information SOCIAL HISTORY Never Assessed PLAN OF CARE VITAL SIGNS MEDICATIONS Medication Instructions Dosage Frequency Start Date End Date Duration Status Acyclovir 200 MG Orally Three times a day 2 capsule 8h March, Active RESULTS No Results PROCEDURES No Known procedures IMMUNIZATIONS No Known Immunizations MEDICAL (GENERAL) HISTORY Type Description Date Hospitalization History Childbirth
--- OUTSIDE RECORDS SUMMARY | 2018-03-28 01:44 | XMS REPORT ---
Author Author GLORY DAO [facility] Address [address] [place] [address] Care Team Providers Care Airport Control Operator Name Role Phone GLORY DAO Unavailable PROBLEMS Type Condition ICD9-CM Code [id number] Code Onset Dates Condition Status SNOMED Code Problem IUD (intrauterine device) in place Z97.5 Active 631208600 Problem HSV (herpes simplex virus) infection B00.9 Active 66272713 ALLERGIES No Information ENCOUNTERS Encounter Location Date Diagnosis [address] [address] Jun, Encounter for IUD insertion Z30.430 and IUD (intrauterine device) in place Z97.5 [place] [address] [id number] [place] [address] Jun, Encounter for visit Z39.2 [place] [address] [address] 27 Apr, 2017 Third trimester Z33.1 and 38 weeks gestation of Z3A.38 [place] [id number] [place] [address]44- 0232 Apr, [place] [address] [address] Apr, care in third trimester Z34.93 and 37 weeks gestation of Z3A.37 [place] [address] [address] Apr, [place] [address] [id number] [place] [address] 51856- 4745 Apr, 36 weeks gestation of Z3A.36 and Third trimester Z33.1 [place] [address], [place] [address] Apr, Third trimester Z33.1 ; 35 weeks gestation of Z3A.35 and HSV (herpes simplex virus) infection B00.9 [place] [id number] [place] [address] 64602- 1148 Apr, care in third trimester Z34.93 [place] [address] [id number] [place] [address] 03173- 0302 Apr, Other viral diseases complicating , third trimester O98.513 [place] [id number] [place] [address] 87055- 4887 March, [place] [address] [id number] [place] [address] 38271- 8527 March, care in third trimester Z34.93 and 34 weeks gestation of Z3A.34 [place] [address] [id number] [place] [address] 73059- [address] March, Third trimester Z33.1 [place] [address] [id number] [place] [address] 9[address]37- 5109 March, [place] [address] [id number] [place] [address] 28693- 3066 March, Dental examination Z01.20 [place] [address] [place] [address] 44727- 5406 March, care in third trimester Z34.93 and 32 weeks gestation of Z3A.32 [place] [address] [place] [address] 07972- 7159 March, Dental examination Z01.20 [place] [address] [place] [id number] [place] [address] 89276- 7837 March, care in third trimester Z34.93 ; Encounter for immunization Z23 and 30 weeks gestation of Z3A.30 [place] [id number] [place] [address] 74740- 2[address] Feb, [place] [address], [place] [address] Feb, Abnormal glucose in , antepartum O99.810 [place] [id number] [address] Feb, 28 weeks gestation of Z3A.28 [place] [address] [place] [address] 96743- 3565 Feb, care in third trimester Z34.93 ; 28 weeks gestation of Z3A.28 and Other viral diseases complicating , third trimester O98.513 [place] [address] [id number] [place] [address] 14524- 6294 Jan, [place] [address] [address] [id number] [place] [address] 55746- 3492 Jan, Second trimester Z34.92 and 24 weeks gestation of Z3A.24 [place] [address], [place] [address] Dec, Second trimester Z33.1 and 20 weeks gestation of Z3A.20 [place] [address], [place] [address] Nov, [place] [address], [place] [address] Nov, Second trimester Z33.1 and 16 weeks gestation of Z3A.16 [place] [address], [place] [address] Nov, First trimester Z33.1 and 14 weeks gestation of Z3A.14 [place] [address], [place] [address] Oct, First trimester Z33.1 ; Normal in multigravida Z34.80 and 12 weeks gestation of Z3A.12 [place] [address] [place] [address] [id number] [address] Oct, IMMUNIZATIONS No Known Immunizations SOCIAL HISTORY Never Assessed REASON FOR VISIT PLAN OF CARE VITAL SIGNS MEDICATIONS No Known Medications RESULTS No Results PROCEDURES No Known procedures INSTRUCTIONS MEDICATIONS ADMINISTERED No Known Medications MEDICAL (GENERAL) HISTORY Type Description Date Hospitalization History Childbirth
--- OUTSIDE RECORDS SUMMARY | 2018-03-28 01:44 | XMS REPORT ---
Author Author GLORY DAO Organization [facility] Address [address] [place] [address] Care Team Providers Care Construction Engineering Manager Name Role Phone GLORY DAO Unavailable PROBLEMS Type Condition ICD9-CM Code TUF86-CR Code Onset Dates Condition Status SNOMED Code Problem IUD (intrauterine device) in place Z97.5 Active 352022933 Problem HSV (herpes simplex virus) infection B00.9 Active 80416689 ALLERGIES No Known Allergies SOCIAL HISTORY Never Assessed PLAN OF CARE Activity Details Follow Up 1 Week Reason: VITAL SIGNS Height 65 in 2017-04-01 Weight 177.0 lbs 2017-04-01 Temperature 97.6 degrees Fahrenheit 2017-04-01 Heart Rate 86 bpm 2017-04-01 Respiratory Rate 18 2017-04-01 BMI 29.454 kg/m2 2017-04-01 Blood pressure systolic 124 mmHg 2017-04-01 Blood pressure diastolic 76 mmHg 2017-04-01 MEDICATIONS Medication Instructions Dosage Frequency Start Date End Date Duration Status - Orally Once a day 1 tablet 24h Active Acyclovir 400 mg Orally Three times a day 1 tablet 8h March, 30 days Active RESULTS Name Result Date Reference Range UA OB DIP (IN HOUSE) 2017-04-01 Glucose negative Protein trace PROCEDURES Procedure Date Ordered Result Body Site URINE-NO MICRO April 01, 2017 IMMUNIZATIONS No Known Immunizations MEDICAL (GENERAL) HISTORY Type Description Date Hospitalization History Childbirth
--- OUTSIDE RECORDS SUMMARY | 2018-03-28 01:44 | XMS REPORT ---
Author Author GLORY DAO Organization [facility] Address [address] [place] [address] Care Team Providers Care Candy Dipper Name Role Phone GLORY DAO Unavailable PROBLEMS Type Condition ICD9-CM Code [id number] Code Onset Dates Condition Status SNOMED Code Problem IUD (intrauterine device) in place Z97.5 Active 060187567 Problem HSV (herpes simplex virus) infection B00.9 Active 94994199 ALLERGIES No Known Allergies SOCIAL HISTORY Never Assessed PLAN OF CARE Activity Details Follow Up 1 Week Reason: VITAL SIGNS Height 65 in 2017-04-08 Weight 179.3 lbs 2017-04-08 Temperature 99.3 degrees Fahrenheit 2017-04-08 Heart Rate 88 bpm 2017-04-08 Respiratory Rate 16 2017-04-08 BMI 29.837 kg/m2 2017-04-08 Blood pressure systolic 112 mmHg 2017-04-08 Blood pressure diastolic 58 mmHg 2017-04-08 MEDICATIONS Medication Instructions Dosage Frequency Start Date End Date Duration Status - Orally Once a day 1 tablet 24h Active Acyclovir 200 MG Orally Three times a day 2 capsule 8h March, Active RESULTS Name Result Date Reference Range UA OB DIP (IN HOUSE) 2017-04-08 Glucose Negative Protein Trace PROCEDURES Procedure Date Ordered Result Body Site URINE-NO MICRO April 08, 2017 IMMUNIZATIONS No Known Immunizations MEDICAL (GENERAL) HISTORY Type Description Date Hospitalization History Childbirth
--- OUTSIDE RECORDS SUMMARY | 2018-03-28 01:45 | XMS REPORT ---
Author Author GLORY DAO Organization [facility] Address [address] [place] [address] Care Team Providers Care Api Architect Name Role Phone GLORY DAO Unavailable PROBLEMS Type Condition ICD9-CM Code SEF70-XQ Code Onset Dates Condition Status SNOMED Code Problem IUD (intrauterine device) in place Z97.5 Active 543889647 Problem HSV (herpes simplex virus) infection B00.9 Active 80980873 ALLERGIES No Information SOCIAL HISTORY Never Assessed PLAN OF CARE VITAL SIGNS MEDICATIONS No Known Medications RESULTS Name Result Date Reference Range UA LONG DIP (IN HOUSE) 2017-03-19 Lot # [id number] Exp date 12/2017 Clarity very clear Color clear Odor no GLU neg MILADY neg KET neg SG 1.010 BLO trace-intact pH 6.5 Protein neg URO 0.2 NIT neg ROLANDA 3+ Lot # Exp date CULTURE, URINE 2017-03-19 Urine Culture, Routine Final report Result 1 No growth PROCEDURES Procedure Date Ordered Result Body Site NON-STRESS TEST 2017-03-19 N/A URINALYSIS, AUTO, W/O SCOPE March 19, 2017 NON-STRESS TEST March 19, 2017 URINE CULTURE/COLONY COUNT March 19, 2017 IMMUNIZATIONS No Known Immunizations MEDICAL (GENERAL) HISTORY Type Description Date Hospitalization History Childbirth
--- OUTSIDE RECORDS SUMMARY | 2018-03-28 01:45 | XMS REPORT ---
Author Author ASHKAN RICH Organization [facility] [place] [facility] Address [address] [place] [address] Care Team Providers Care Maintenance Mechanic Technician Name Role Phone ASHKAN RICH Unavailable PROBLEMS Type Condition ICD9-CM Code AVM59-WE Code Onset Dates Condition Status SNOMED Code Problem IUD (intrauterine device) in place Z97.5 Active 195801979 Problem HSV (herpes simplex virus) infection B00.9 Active 62303488 ALLERGIES No Known Allergies SOCIAL HISTORY Never Assessed PLAN OF CARE Activity Details Follow Up prn Reason:ARLYN VITAL SIGNS Height 65 in 2017-03-17 Heart Rate 84 bpm 2017-03-17 Blood pressure systolic 118 mmHg 2017-03-17 Blood pressure diastolic 70 mmHg 2017-03-17 MEDICATIONS Medication Instructions Dosage Frequency Start Date End Date Duration Status - Orally Once a day 1 tablet 24h Active RESULTS No Results PROCEDURES Procedure Date Ordered Result Body Site BITEWINGS - FOUR FILMS March 17, 2017 ORAL HYGIENE INSTRUCTIONS March 17, 2017 Full mouth debridement March 17, 2017 IMMUNIZATIONS No Known Immunizations MEDICAL (GENERAL) HISTORY Type Description Date Hospitalization History Childbirth
--- OUTSIDE RECORDS SUMMARY | 2018-03-28 01:45 | XMS REPORT ---
Author Author GLROY DAO [facility] Address [address] [place] [address] Care Team Providers Care Ski Binding Fitter And Repairer Name Role Phone GLORY DAO Unavailable PROBLEMS Type Condition ICD9-CM Code PRU45-IF Code Onset Dates Condition Status SNOMED Code Problem IUD (intrauterine device) in place Z97.5 Active 718136549 Problem HSV (herpes simplex virus) infection B00.9 Active 10816615 ALLERGIES No Information SOCIAL HISTORY Never Assessed PLAN OF CARE VITAL SIGNS MEDICATIONS No Known Medications RESULTS No Results PROCEDURES No Known procedures IMMUNIZATIONS No Known Immunizations MEDICAL (GENERAL) HISTORY Type Description Date Hospitalization History Childbirth
--- OUTSIDE RECORDS SUMMARY | 2018-03-28 01:45 | XMS REPORT ---
Author Author GLORY DAO [facility] Address [address] [place] [address] Care Team Providers Care Community Organization Director Name Role Phone GLORY DAO Unavailable PROBLEMS Type Condition ICD9-CM Code HMB38-CO Code Onset Dates Condition Status SNOMED Code Problem IUD (intrauterine device) in place Z97.5 Active 807208514 Problem HSV (herpes simplex virus) infection B00.9 Active 62976176 ALLERGIES No Information ENCOUNTERS Encounter Location Date Diagnosis [place] [address] [place] [id number] [place] [address] Jan, Exposure to STD Z20.2 and Bacterial conjunctivitis H10.9 [place] [address] [place] [id number] [place] [address] 16593- 4182 Jun, Encounter for IUD insertion Z30.430 and IUD (intrauterine device) in place Z97.5 [place] [address] [address] Jun, Encounter for visit Z39.2 [place] [address] [address] [id number] [place] [address] 81682- 9518 Apr, Third trimester Z33.1 and 38 weeks gestation of Z3A.38 [place] [address] [id number] [place] [address] 76618- 5[address] Apr, [place] [address] [address]- [address] Apr, care in third trimester Z34.93 and 37 weeks gestation of Z3A.37 [place] [address] [id number] [place] [address] 21132- 3876 Apr, [place] [address] [address] [id number] [place] [address] 28855- 2569 Apr, 36 weeks gestation of Z3A.36 and Third trimester Z33.1 [facility] [address] [id number] [place] [address] 90112- 5660 Apr, Third trimester Z33.1 ; 35 weeks gestation of Z3A.35 and HSV (herpes simplex virus) infection B00.9 [place] [address] [id number] [place] [address] 02369- 7445 Apr, care in third trimester Z34.93 [place] [address] [address] [id number] [place] [address] 45022- 3042 Apr, Other viral diseases complicating , third trimester O98.513 [place] [address] [address] [id number] [place] [address] 04724- 8760 March, [place] [address] [address] [id number] [place] [address] 36853- 5263 March, care in third trimester Z34.93 and 34 weeks gestation of Z3A.34 [place] [address] [address] [id number] [place] [address] 61146- 3147 March, Third trimester Z33.1 [facility] [address] [id number] [place] [address] 32202- 0614 March, [place] [address] [id number] [place] [address] 82623- 3286 March, Dental examination Z01.20 [place] [address] [id number] [place] [address] 73338- 4818 March, care in third trimester Z34.93 and 32 weeks gestation of Z3A.32 [facility] [address] [id number] [place] [address]- 1947 March, Dental examination Z01.20 [place] [address] [id number] [place] [address] 27980- 0433 March, care in third trimester Z34.93 ; Encounter for immunization Z23 and 30 weeks gestation of Z3A.30 [place] [address] [id number] [place] [address] 68722- 7743 Feb, [place] [address] [id number] [place] [address] 01599- 0878 Feb, Abnormal glucose in , antepartum O99.810 [place] [id number] [place] [address] 18958- 7367 Feb, 28 weeks gestation of Z3A.28 [place] [id number] [place] [address] 03241- 1425 Feb, care in third trimester Z34.93 ; 28 weeks gestation of Z3A.28 and Other viral diseases complicating , third trimester O98.513 [place] [id number] [place] [address] 19008- 8020 Jan, [place] [id number] [place] [address] 47575- 1998 Jan, Second trimester Z34.92 and 24 weeks gestation of Z3A.24 [place] [id number] [place] [address] 06583- 6576 Dec, Second trimester Z33.1 and 20 weeks gestation of Z3A.20 [place] [id number] [place] [address] 67278- 3991 Nov, [place] [id number] [place] [address] 36848- 0068 Nov, Second trimester Z33.1 and 16 weeks gestation of Z3A.16 [place] [id number] [place] [address] 93721- 7370 Nov, First trimester Z33.1 and 14 weeks gestation of Z3A.14 [place] [id number] [place] [address] 49421- 6436 Oct, First trimester Z33.1 ; Normal in multigravida Z34.80 and 12 weeks gestation of Z3A.12 [facility] [address] [facility] [id number] [place] [address] Oct, IMMUNIZATIONS No Known Immunizations SOCIAL HISTORY Never Assessed REASON FOR VISIT OB 4wk f/u -- chriss de la cruz PLAN OF CARE Activity Details Follow Up 4 Weeks Reason: VITAL SIGNS Height 65 in 2017-01-23 Weight 153.2 lbs 2017-01-23 Temperature 97.2 degrees Fahrenheit 2017-01-23 Heart Rate 80 bpm 2017-01-23 Respiratory Rate 20 2017-01-23 BMI 25.494 kg/m2 2017-01-23 Blood pressure systolic 130 mmHg 2017-01-23 Blood pressure diastolic 82 mmHg 2017-01-23 MEDICATIONS Medication Instructions Dosage Frequency Start Date End Date Duration Status - Orally Once a day 1 tablet 24h Active RESULTS No Results PROCEDURES No Known procedures INSTRUCTIONS MEDICATIONS ADMINISTERED No Known Medications MEDICAL (GENERAL) HISTORY Type Description Date Hospitalization History Childbirth
--- OUTSIDE RECORDS SUMMARY | 2018-03-28 01:45 | XMS REPORT ---
Author Author GLORY DAO Organization [facility] Address [address] [place] [address] Care Team Providers Care Ecg Technician Name Role Phone GLORY DAO Unavailable PROBLEMS Type Condition ICD9-CM Code [id number] Code Onset Dates Condition Status SNOMED Code Problem IUD (intrauterine device) in place Z97.5 Active 102098705 Problem HSV (herpes simplex virus) infection B00.9 Active 49518902 ALLERGIES No Information SOCIAL HISTORY Never Assessed PLAN OF CARE Activity Details Follow Up 4 weeks with Cheo Reason: VITAL SIGNS Height 65 in 2016-11-25 Weight 144.7 lbs 2016-11-25 Temperature 97.9 degrees Fahrenheit 2016-11-25 Heart Rate 90 bpm 2016-11-25 Respiratory Rate 20 2016-11-25 BMI 24.079 kg/m2 2016-11-25 Blood pressure systolic 118 mmHg 2016-11-25 Blood pressure diastolic 69 mmHg 2016-11-25 MEDICATIONS Medication Instructions Dosage Frequency Start Date End Date Duration Status - Orally Once a day 1 tablet 24h Active RESULTS Name Result Date Reference Range UA OB DIP (IN HOUSE) 2016-11-25 Glucose Negative Protein negative PROCEDURES Procedure Date Ordered Result Body Site URINE-NO MICRO Nov 25, 2016 IMMUNIZATIONS No Known Immunizations MEDICAL (GENERAL) HISTORY Type Description Date Hospitalization History Childbirth
--- OUTSIDE RECORDS SUMMARY | 2018-03-28 01:45 | XMS REPORT ---
Author Author GLORY DAO [facility] Address [address] [place] [address] Care Team Providers Care Home Health Care Case Manager Name Role Phone GLORY DAO Unavailable PROBLEMS Type Condition ICD9-CM Code [id number] Code Onset Dates Condition Status SNOMED Code Problem IUD (intrauterine device) in place Z97.5 Active 905943185 Problem HSV (herpes simplex virus) infection B00.9 Active 60913624 ALLERGIES Unknown Allergies SOCIAL HISTORY No smoking Hx information available PLAN OF CARE VITAL SIGNS MEDICATIONS Unknown Medications RESULTS No Results PROCEDURES No Known procedures IMMUNIZATIONS No Known Immunizations
--- OUTSIDE RECORDS SUMMARY | 2018-03-28 01:45 | XMS REPORT ---
Author Author GLORY DAO Organization [facility] Address [address] [place] [address] Care Team Providers Care Senior Cytogenetics Laboratory Director Name Role Phone GLORY DAO Unavailable PROBLEMS Type Condition ICD9-CM Code LIT68-QV Code Onset Dates Condition Status SNOMED Code Problem Dental examination Z01.20 Active 456269360 ALLERGIES Unknown Allergies SOCIAL HISTORY No smoking Hx information available PLAN OF CARE Activity Details Follow Up 4 Weeks w/ Cheo Reason: VITAL SIGNS Height 65 in 2016-10-30 Weight 143 lbs 2016-10-30 Temperature 98.5 degrees Fahrenheit 2016-10-30 Heart Rate 90 bpm 2016-10-30 Respiratory Rate 18 2016-10-30 BMI 23.796 kg/m2 2016-10-30 Blood pressure systolic 110 mmHg 2016-10-30 Blood pressure diastolic 80 mmHg 2016-10-30 MEDICATIONS Medication Instructions Dosage Frequency Start Date End Date Duration Status - Orally Once a day 1 tablet 24h Active RESULTS Name Result Date Reference Range UA OB DIP (IN HOUSE) 2016-10-30 Glucose negative Protein negative URINE DRUG SCREEN (IN HOUSE) 2016-10-30 Lot # [id number] Exp date 05/2018 Control + COCAINE negative AMPH negative MTD negative THC POSITIVE OPIATE negative BENZO negative PCP negative BAR negative OXY negative MAMP negative TCA negative BUP negative MDMA negative TRICHOMONAS (IN HOUSE) 2016-10-31 TRICHOMONAS negative Control + Lot # [id number] Exp date 10/2017 BACTERIAL VAGINOSIS (IN HOUSE) 2016-10-31 RESULTS negative Control + Lot # [id number] Exp date 06/2017 TSH () 2016-10-30 TSH 0.179 0.450-4.500 CBC 2016-10-30 WBC 10.6 3.4-10.8 RBC 4.29 3.77-5.28 Hemoglobin 12.2 11.1-15.9 Hematocrit 37.1 34.0-46.6 MCV 87 79-97 MCH 28.4 26.6-33.0 MCHC 32.9 31.5-35.7 RDW 14.3 12.3-15.4 Platelets 200 150-379 Neutrophils 73 Lymphs 21 Monocytes 5 Eos 1 Basos 0 Neutrophils (Absolute) 7.7 1.4-7.0 Lymphs (Absolute) 2.2 0.7-3.1 Monocytes(Absolute) 0.6 0.1-0.9 Eos (Absolute) 0.1 0.0-0.4 Baso (Absolute) 0.0 0.0-0.2 Immature Granulocytes 0 Immature Grans (Abs) 0.0 0.0-0.1 ANTIBODY SCREEN 2016-10-30 Antibody Screen Negative Negative BLOOD TYPE/RH FACTOR 2016-10-30 ABO Grouping O Rh Factor Positive RUBELLA ANTIBODIES, IgG 2016-10-30 Rubella Antibodies, IgG 5.82 Immune >0.99 CULTURE, GENITAL 2016-10-30 Genital Culture, Routine Final report Result 1 CULTURE, URINE 2016-10-30 Urine Culture, Routine Final report Result 1 No growth GC/CHLAM PROBE (STATE) 2016-10-30 CHLAMYDIA GC SYPHILIS (STATE) 2016-10-30 HIV (STATE) 2016-10-30 HEP B SURFACE ANTIGEN (STATE) 2016-10-30 HEP B ANTIBODY HEP B ANTIBODY ([facility]) HEP B ANTIBODY ([facility]) PROCEDURES Procedure Date Ordered Related Diagnosis Body Site BLOOD TYPING, RH (D) Oct 30, 2016 URINE CULTURE/COLONY COUNT Oct 30, 2016 BLOOD TYPING, ABO Oct 30, 2016 No Charge Oct 30, 2016 DRUG SCREEN NON TLC DEVICES Oct 30, 2016 RUBELLA ANTIBODY Oct 30, 2016 COMPLETE CBC W/AUTO DIFF WBC Oct 30, 2016 CULTURE, BACTERIA, OTHER Oct 30, 2016 GUERRERO VAG, DNA, DIR PROBE Oct 30, 2016 RBC ANTIBODY SCREEN Oct 30, 2016 TRICHOMONAS ASSAY W/OPTIC Oct 30, 2016 URINE-NO MICRO Oct 30, 2016 ASSAY THYROID STIM HORMONE Oct 30, 2016 VENIPUNCT, ROUTINE* Oct 30, 2016 Office Visit, New Pt., Level 3 Oct 30, 2016 IMMUNIZATIONS No Known Immunizations
--- OUTSIDE RECORDS SUMMARY | 2018-03-28 01:45 | XMS REPORT ---
Author Author GLORY DAO [facility] Address [address] [place] [address] Care Team Providers Care Critical Care Paramedic Name Role Phone GLORY DAO Unavailable PROBLEMS Type Condition ICD9-CM Code HBK59-DV Code Onset Dates Condition Status SNOMED Code Problem IUD (intrauterine device) in place Z97.5 Active 257494098 Problem HSV (herpes simplex virus) infection B00.9 Active 78533701 ALLERGIES No Information ENCOUNTERS Encounter Location Date Diagnosis [place] [address] [address] Feb, [address] [address] Jan, Exposure to STD Z20.2 and Bacterial conjunctivitis H10.9 [place] [address] [address] Jun, Encounter for IUD insertion Z30.430 and IUD (intrauterine device) in place Z97.5 [place] [address] [place] [id number] [place] [address] Jun, Encounter for visit Z39.2 [place] [address] [place] [id number] [place] [address] Apr, Third trimester Z33.1 and 38 weeks gestation of Z3A.38 [place] [address] [address] Apr, [place] [address] [place] [id number] [place] [address] Apr, care in third trimester Z34.93 and 37 weeks gestation of Z3A.37 [place] [address], [place] [address] Apr, [place] [address] [place] [id number] [place] [address] Apr, 36 weeks gestation of Z3A.36 and Third trimester Z33.1 [place] [address], [place] [address] Apr, Third trimester Z33.1 ; 35 weeks gestation of Z3A.35 and HSV (herpes simplex virus) infection B00.9 [place] [address], [place] [address] Apr, care in third trimester Z34.93 [place] [address] [place] [id number] [place] [address] 4[address] Apr, Other viral diseases complicating , third trimester O98.513 [place] [address] [place] [id number] [address] March, [place] [address] [place] [id number] [place] [address] March, care in third trimester Z34.93 and 34 weeks gestation of Z3A.34 [place] [address], [place] [address] March, Third trimester Z33.1 [place] [address], [place] [address] March, [place] [address], [place] [address] March, Dental examination Z01.20 [place] [address] [place] [id number] [place] [address] March, care in third trimester Z34.93 and 32 weeks gestation of Z3A.32 [place] [address], [place] [address] 01 May, 2017 Dental examination Z01.20 [place] [address], [place] [address] March, care in third trimester Z34.93 ; Encounter for immunization Z23 and 30 weeks gestation of Z3A.30 [place] [address] [place] [id number] [address] Feb, [place] [address] [place] [id number] [place] [address] Feb, Abnormal glucose in , antepartum O99.810 [place] [address] [place] [id number] [place] [address]- [address] Feb, 28 weeks gestation of Z3A.28 [place] [address] [place] [id number] [place] [address] 8[address]- 47[address] Feb, care in third trimester Z34.93 ; 28 weeks gestation of Z3A.28 and Other viral diseases complicating , third trimester O98.513 [place] [address] [place] [id number] [address] Jan, [place] [address] [place] [id number] [place] [address] Jan, Second trimester Z34.92 and 24 weeks gestation of Z3A.24 [place] [address], [place] [address] Dec, Second trimester Z33.1 and 20 weeks gestation of Z3A.20 [place] [address], [place] [address] Nov, [place] [address] [place] [id number] [place] [address] Nov, Second trimester Z33.1 and 16 weeks gestation of Z3A.16 [place] [address], [place] [address] Nov, First trimester Z33.1 and 14 weeks gestation [address] Z3A.14 [facility] [address] [facility] [id number] [place] [address] 28 Oct, 2016 First trimester Z33.1 ; Normal in multigravida Z34.80 and 12 weeks gestation [address] Z3A.12 [facility] [address] [facility] [id number] [place] [address] Oct, IMMUNIZATIONS No Known Immunizations SOCIAL HISTORY Never Assessed REASON FOR VISIT OB f/u-1 wk---FLACA Zuleta PLAN OF CARE Activity Details Follow Up 1 Week Reason: VITAL SIGNS Height 65 in 2017-04-22 Weight 182.9 lbs 2017-04-22 Temperature 97.8 degrees Fahrenheit 2017-04-22 Heart Rate 77 bpm 2017-04-22 Respiratory Rate 18 2017-04-22 BMI 30.436 kg/m2 2017-04-22 Blood pressure systolic 124 mmHg 2017-04-22 Blood pressure diastolic 81 mmHg 2017-04-22 MEDICATIONS Medication Instructions Dosage Frequency Start Date End Date Duration Status Acyclovir 200 MG Orally Three times a day 2 capsule 8h March, Active - Orally Once a day 1 tablet 24h Active RESULTS Name Result Date Reference Range UA OB DIP (IN HOUSE) 2017-04-22 Glucose Negative Protein Negative PROCEDURES Procedure Date Ordered Result Body Site URINE-NO MICRO April 22, 2017 INSTRUCTIONS MEDICATIONS ADMINISTERED No Known Medications MEDICAL (GENERAL) HISTORY Type Description Date Hospitalization History Childbirth
--- OUTSIDE RECORDS SUMMARY | 2018-03-28 01:45 | XMS REPORT ---
Author Author GLORY DAO [facility] Address [address] [place] [address] Care Team Providers Care Panelboard Tank Pumper Name Role Phone GLORY DAO Unavailable PROBLEMS Type Condition ICD9-CM Code WHF17-SH Code Onset Dates Condition Status SNOMED Code Problem IUD (intrauterine device) in place Z97.5 Active 668985384 Problem HSV (herpes simplex virus) infection B00.9 Active 56810354 ALLERGIES No Information SOCIAL HISTORY Never Assessed PLAN OF CARE Activity Details Follow Up 2 Weeks Reason: VITAL SIGNS Height 65 in 2017-03-17 Weight 170.0 lbs 2017-03-17 Temperature 97.8 degrees Fahrenheit 2017-03-17 BMI 28.289 kg/m2 2017-03-17 Blood pressure systolic 118 mmHg 2017-03-17 Blood pressure diastolic 70 mmHg 2017-03-17 MEDICATIONS Medication Instructions Dosage Frequency Start Date End Date Duration Status - Orally Once a day 1 tablet 24h Active RESULTS Name Result Date Reference Range UA OB DIP (IN HOUSE) 2017-03-17 Glucose negative Protein trace CBC 2017-03-17 WBC 13.6 3.4-10.8 RBC 4.06 3.77-5.28 Hemoglobin 11.4 11.1-15.9 Hematocrit 34.2 34.0-46.6 MCV 84 79-97 MCH 28.1 26.6-33.0 MCHC 33.3 31.5-35.7 RDW 13.4 12.3-15.4 Platelets 230 150-379 Neutrophils 81 Lymphs 14 Monocytes 5 Eos 0 Basos 0 Immature Cells Neutrophils (Absolute) 10.9 1.4-7.0 Lymphs (Absolute) 1.9 0.7-3.1 Monocytes(Absolute) 0.7 0.1-0.9 Eos (Absolute) 0.1 0.0-0.4 Baso (Absolute) 0.0 0.0-0.2 Immature Granulocytes 0 Immature Grans (Abs) 0.0 0.0-0.1 NRBC Hematology Comments: PROCEDURES Procedure Date Ordered Result Body Site URINE-NO MICRO March 17, 2017 VENIPUNCT, ROUTINE* March 17, 2017 COMPLETE CBC W/AUTO DIFF WBC March 17, 2017 IMMUNIZATIONS No Known Immunizations MEDICAL (GENERAL) HISTORY Type Description Date Hospitalization History Childbirth
--- OUTSIDE RECORDS SUMMARY | 2018-03-28 01:45 | XMS REPORT ---
Author Author JAZ GREGORY [facility] Address [address] [place] [address] Care Team Providers Care Radial Drill Operator For Plastic Name Role Phone JAZ GREGORY Unavailable PROBLEMS Type Condition ICD9-CM Code QXN82-RB Code Onset Dates Condition Status SNOMED Code Problem IUD (intrauterine device) in place Z97.5 Active 287177220 Problem HSV (herpes simplex virus) infection B00.9 Active 21561622 ALLERGIES No Information SOCIAL HISTORY Never Assessed PLAN OF CARE Activity Details Follow Up 1m Reason:est care visit. VITAL SIGNS MEDICATIONS No Known Medications RESULTS No Results PROCEDURES Procedure Date Ordered Result Body Site SCREENING OF A PATIENT March 03, 2017 Billing Notes on claim March 03, 2017 IMMUNIZATIONS No Known Immunizations MEDICAL (GENERAL) HISTORY Type Description Date Hospitalization History Childbirth
--- OUTSIDE RECORDS SUMMARY | 2018-03-28 01:46 | XMS REPORT ---
Author Author GLORY DAO [facility] Address [address] [place] [address] Care Team Providers Care Sanding Machine Tender Name Role Phone GLORY DAO Unavailable PROBLEMS Type Condition ICD9-CM Code ZXL57-NA Code Onset Dates Condition Status SNOMED Code Problem IUD (intrauterine device) in place Z97.5 Active 257450258 Problem HSV (herpes simplex virus) infection B00.9 Active 73142084 ALLERGIES No Information SOCIAL HISTORY Never Assessed PLAN OF CARE VITAL SIGNS MEDICATIONS No Known Medications RESULTS No Results PROCEDURES No Known procedures IMMUNIZATIONS No Known Immunizations MEDICAL (GENERAL) HISTORY Type Description Date Hospitalization History Childbirth
--- OUTSIDE RECORDS SUMMARY | 2018-03-28 01:46 | XMS REPORT ---
Author Author GLORY ADO Organization [facility] Address [address] [place] [address] Care Team Providers Care Flux Mixer Name Role Phone GLORY DAO Unavailable PROBLEMS Type Condition ICD9-CM Code PDR85-FI Code Onset Dates Condition Status SNOMED Code Problem IUD (intrauterine device) in place Z97.5 Active 199744646 Problem HSV (herpes simplex virus) infection B00.9 Active 95213154 ALLERGIES No Known Allergies SOCIAL HISTORY Never Assessed PLAN OF CARE Activity Details Follow Up 4 Weeks Reason: VITAL SIGNS Height 65 in 2016-12-23 Weight 150 lbs 2016-12-23 Temperature 97.5 degrees Fahrenheit 2016-12-23 Heart Rate 90 bpm 2016-12-23 Respiratory Rate 20 2016-12-23 BMI 24.961 kg/m2 2016-12-23 Blood pressure systolic 122 mmHg 2016-12-23 Blood pressure diastolic 60 mmHg 2016-12-23 MEDICATIONS Medication Instructions Dosage Frequency Start Date End Date Duration Status - Orally Once a day 1 tablet 24h Active RESULTS Name Result Date Reference Range UA OB DIP (IN HOUSE) 2016-12-23 Glucose 1+ Protein negative UA LONG DIP (IN HOUSE) 2016-12-23 Lot # [id number] Exp date 11/2017 Clarity clear Color yellow Odor no GLU 1+ MILADY negative KET 1+ SG 1.020 BLO negative pH 6.5 Protein negative URO 1.0 NIT negative ROLANDA 3+ Lot # Exp date CULTURE, URINE 2016-12-23 Urine Culture, Routine Final report Result 1 No growth PROCEDURES Procedure Date Ordered Result Body Site URINALYSIS, AUTO, W/O SCOPE Dec 23, 2016 URINE CULTURE/COLONY COUNT Dec 23, 2016 URINE-NO MICRO Dec 23, 2016 IMMUNIZATIONS No Known Immunizations MEDICAL (GENERAL) HISTORY Type Description Date Hospitalization History Childbirth
--- OUTSIDE RECORDS SUMMARY | 2018-03-28 01:46 | XMS REPORT ---
Author Author GLORY DAO [facility] Address [address] [place] [address] Care Team Providers Care Hook And Eye Attacher Name Role Phone GLORY DAO Unavailable PROBLEMS Type Condition ICD9-CM Code NZH42-GG Code Onset Dates Condition Status SNOMED Code Problem IUD (intrauterine device) in place Z97.5 Active 321663867 Problem HSV (herpes simplex virus) infection B00.9 Active 78781590 ALLERGIES No Known Allergies ENCOUNTERS Encounter Location Date Diagnosis [place] [address] [place] [id number] [place] [address] Jan, Exposure to STD Z20.2 and Bacterial conjunctivitis H10.9 [place] [address] [address] Jun, Encounter for IUD insertion Z30.430 and IUD (intrauterine device) in place Z97.5 [place] [address] [place] [id number] [place] [address] Jun, Encounter for visit Z39.2 [place] [address] [place] [id number] [place] [address]- 9399 Apr, Third trimester Z33.1 and 38 weeks gestation of Z3A.38 [place] [address] [place] [id number] [place] [address] 21298- [address] Apr, [place] [address] [address] Apr, care in third trimester Z34.93 and 37 weeks gestation of Z3A.37 [place] [address] [place] [id number] [place] [address]- [address] Apr, [place] [address], [place] [address]- [address] Apr, 36 weeks gestation of Z3A.36 and Third trimester Z33.1 [facility] [address] [place] [id number] [place] [address] 51807- 8500 Apr, Third trimester Z33.1 ; 35 weeks gestation of Z3A.35 and HSV (herpes simplex virus) infection B00.9 [place] [address] [place] [id number] [place] [address] 16112- 5428 Apr, care in third trimester Z34.93 [place] [address] [place] [id number] [place] [address]13- 8779 Apr, Other viral diseases complicating , third trimester O98.513 [place] [address] [place] [id number] [place] [address]- [address] March, [place] [address] [place] [id number] [place] [address] 84365- 4882 March, care in third trimester Z34.93 and 34 weeks gestation of Z3A.34 [place] [address] [place] [id number] [place] [address] 66448- 6[address] March, Third trimester Z33.1 [facility] [address] [place] [id number], [place] [address] March, [place] [address] [place] [id number] [place] [address]2680- 6[address] March, Dental examination Z01.20 [place] [address], [place] [address] March, care in third trimester Z34.93 and 32 weeks gestation of Z3A.32 [facility] [address], [place] [address] 26[address] March, Dental examination Z01.20 [place] [address] [place] [id number] [place] [address] 28623- 0682 March, care in third trimester Z34.93 ; Encounter for immunization Z23 and 30 weeks gestation of Z3A.30 [place] [address] [place] [id number] [place] [address] 60740- 5306 Feb, [place] [address] [place] [id number] [place] [address] 72760- 9124 Feb, Abnormal glucose in , antepartum O99.810 [place] [address] [place] [id number] [place] [address] 25038- 8028 Feb, 28 weeks gestation of Z3A.28 [place] [id number] [place] [address] 41933- 7365 Feb, care in third trimester Z34.93 ; 28 weeks gestation of Z3A.28 and Other viral diseases complicating , third trimester O98.513 [place] [id number] [place] [address] 95262- [address] Jan, [place] [id number] [place] [address] 09009- 5662 Jan, Second trimester Z34.92 and 24 weeks gestation of Z3A.24 [place] [id number] [place] [address] 78860- 9452 Dec, Second trimester Z33.1 and 20 weeks gestation of Z3A.20 [place] [id number] [place] [address] 29702- 5766 Nov, [place] [id number] [place] [address] 97751- 6647 Nov, Second trimester Z33.1 and 16 weeks gestation of Z3A.16 [place] [address] [place] [id number] [place] [address] 16233- 3876 Nov, First trimester Z33.1 and 14 weeks gestation of Z3A.14 [place] [id number] [place] [address] 23879- 2234 Oct, First trimester Z33.1 ; Normal in multigravida Z34.80 and 12 weeks gestation of Z3A.12 [facility] [address] [facility] [id number] [place] [address]- [address] Oct, IMMUNIZATIONS No Known Immunizations SOCIAL HISTORY Never Assessed REASON FOR VISIT Mirena Insertion-BROOK Parker PLAN OF CARE Activity Details Follow Up 4 Weeks with Gault for IUD check Reason: VITAL SIGNS Height 65 in 2017-06-30 Weight 164 lbs 2017-06-30 Temperature 97.7 degrees Fahrenheit 2017-06-30 Heart Rate 88 bpm 2017-06-30 Respiratory Rate 18 2017-06-30 BMI 27.29 kg/m2 2017-06-30 Blood pressure systolic 110 mmHg 2017-06-30 Blood pressure diastolic 70 mmHg 2017-06-30 MEDICATIONS Medication Instructions Dosage Frequency Start Date End Date Duration Status - Orally Once a day 1 tablet 24h Active RESULTS No Results PROCEDURES Procedure Date Ordered Result Body Site MIRENA LNG-RELEASING IUC SYS 52MG 5 YR DUR Jun 30, 2017 INSERT INTRAUTERINE DEVICE Jun 30, 2017 INSTRUCTIONS MEDICATIONS ADMINISTERED No Known Medications MEDICAL (GENERAL) HISTORY Type Description Date Hospitalization History Childbirth
--- OUTSIDE RECORDS SUMMARY | 2018-03-28 01:46 | XMS REPORT ---
Author Author JASON COLON [facility] Address [address] [place] [address] Care Team Providers Care Customer Supply Coordinator Name Role Phone JASON COLON Unavailable PROBLEMS Type Condition ICD9-CM Code WOF48-MI Code Onset Dates Condition Status SNOMED Code Problem IUD (intrauterine device) in place Z97.5 Active 161290455 Problem HSV (herpes simplex virus) infection B00.9 Active 27493223 ALLERGIES No Known Allergies SOCIAL HISTORY Never Assessed PLAN OF CARE VITAL SIGNS MEDICATIONS Medication Instructions Dosage Frequency Start Date End Date Duration Status - Orally Once a day 1 tablet 24h Active RESULTS No Results PROCEDURES No Known procedures IMMUNIZATIONS No Known Immunizations MEDICAL (GENERAL) HISTORY Type Description Date Hospitalization History Childbirth
--- NOTE | 2018-03-28 01:59 | ED Cough/URI ---
General Chief Complaint: Cough/Cold/Flu Symptoms Stated Complaint: CONGESTED,COUGHING,ABD PAIN Source: patient Exam Limitations: no limitations History of Present Illness Date Seen by Provider: March 28, 2018 Time Seen by Provider: 01:45 Initial Comments The patient presents to the ER by private conveyance with her [id number] son. They both have a chief complaint of nasal congestion, ear fullness, cough that is nonproductive. She smokes about a half pack cigarettes per day. She has had no fevers but she has had chills and malaise. No other sick contacts. No travel outside the [facility]. No history of asthma, COPD or other lung disease. She has not taken any Tylenol Motrin or other fever relievers. Allergies and Home Medications Allergies Coded Allergies: No Known Drug Allergies (Unverified , 10/01/16) Home Medications Ibuprofen 600 Mg Tablet, 600 MG PO Q6H Prescribed by: GLORY DAO on 05/04/17 1036 Vit W-Ca,Fe,FA(<1 mg) 1 Each Tablet, 1 EACH PO DAILY, (Reported) Patient Home Medication List Home Medication List Reviewed: Yes Review of Systems Constitutional: No chills, No diaphoresis EENTM: nose congestion; No ear discharge, No hearing loss, No ear pain, No blurred vision, No double vision, No nose pain, No throat pain, No throat swelling Respiratory: cough; No hemoptysis, No orthopnea, No phlegm, No short of breath , No wheezing Cardiovascular: No chest pain, No Hx of Intervention, No palpitations Gastrointestinal: No abdominal pain, No constipation, No diarrhea, No nausea Genitourinary: No discharge, No dysuria Past Jhdjtxs-Zopmdh-Henxdh Hx Patient Social History Recreational Drug Use: No Smoking Status: Current Everyday Smoker Type Used: Cigarettes Recent Foreign Travel: No Contact w/Someone Who Travel: No Recent Hopitalizations: No Immunizations Up To Date Tetanus Booster (TDap): Less than 5yrs PED Vaccines UTD: Yes Seasonal Allergies Seasonal Allergies: No Past Medical History Surgeries: Yes (D&C) Respiratory: No Cardiac: No Neurological: No Sexually Transmitted Disease: Yes (HSV) HIV/AIDS: No Genitourinary: No Gastrointestinal: No Musculoskeletal: No Endocrine: No HEENT: No Cancer: No Psychosocial: Yes Anxiety Integumentary: No Blood Disorders: No Adverse Reaction/Blood Tranf: No Family Medical History No Pertinent Family Hx Physical Exam Vital Signs Capillary Refill : General Appearance: WD/WN, no apparent distress Eyes: Bilateral Eye Normal Inspection, Bilateral Eye PERRL, Bilateral Eye EOMI HEENT: PERRL/EOMI, normal ENT inspection, pharynx normal, other (bilateral TMs with clear effusion. No erythema, loss of landmarks, dullness or injection.) Neck: non-tender, full range of motion, supple, normal inspection Respiratory: chest non-tender, lungs clear, normal breath sounds, no respiratory distress, no accessory muscle use Cardiovascular: normal peripheral pulses, regular rate, rhythm Neurologic/Psychiatric: alert, normal mood/affect, oriented x 3 Skin: normal color, warm/dry Progress/Results/Core Measures Suspected Sepsis SIRS Temperature: Pulse: Respiratory Rate: Blood Pressure / Mean: Results/Orders Vital Signs/I&O Capillary Refill : Departure Impression Primary Impression: Upper respiratory infection Qualified Codes: J06.9 - Acute upper respiratory infection, unspecified Additional Impression: Otitis media with effusion Qualified Codes: H65.93 - Unspecified nonsuppurative otitis media, bilateral Disposition: 01 HOME, SELF-CARE Condition: Stable Departure-Patient Inst. Decision time for Depature: 01:57 Referrals: GLORY DAO MD (PCP/Family) Primary Care Physician Patient Instructions: Viral Upper Respiratory Infection, Adult (DC) Add. Discharge Instructions: Drink plenty of fluids. Use salt water gargles for your sore throat. Use Tylenol or Motrin for body aches, chills or fever. You can use humidifiers, vapor rubs and Flonase to help clear out the pressure in your ears. Apply 1 puff of Flonase twice a day to each nostril for the next week. Expect your symptoms to last about 5-7 days. All discharge instructions reviewed with patient and/or family. Voiced understanding. Copy Copies To 1: JASON COLON TITUS J March 28, 2018 01:58
[2018-03-28 02:13] VITALS: BP 117/52
== END 2018-03-28 02:13 | disposition home or self-care (01) ==
LOC: EDUNIT# 01:37 → ER 01:40
DX: H65.93 Unspecified nonsuppurative otitis media, bilateral (principal); J06.9 Acute upper respiratory infection, unspecified; F41.9 Anxiety disorder, unspecified; F17.210 Nicotine dependence, cigarettes, uncomplicated; Z87.59 Personal history of other complications of pregnancy, childbirth and the puerperium; Z86.19 Personal history of other infectious and parasitic diseases
CPT/HCPCS: 99282